=== PATIENT | female | born 1995 | race Caucasian/White ===

== ENCOUNTER 2017-01-18 14:40 | Emergency (ER) | payer OTHER ==
[2017-01-18 15:27] LABS: BILIRUBIN NEGATIVE (NEGATIVE); BLOOD 2+ Ery/uL (NEGATIVE); CLARITY CLEAR (CLEAR); COLOR YELLOW (YELLOW); GLUCOSE (U) NORMAL (NORMAL); KETONE (U) NEGATIVE (NEGATIVE); LEUKOCYTES TRACE Leu/uL (NEGATIVE); NITRITE NEGATIVE (NEGATIVE); PROTEIN TRACE (LOW) mg/dL (NEGATIVE); UROBILINOGEN 0.2 mg/dL (0.2-1.0); pH 7.5 (5.0-9.0)
[2017-01-18 15:39] LABS: BACTERIA 1+
== END 2017-01-18 16:12 | disposition home or self-care (01) ==
LOC: FER 14:40
PROVIDERS: Internal Medicine
DX: N30.01 Acute cystitis with hematuria (principal); F17.210 Nicotine dependence, cigarettes, uncomplicated
CPT/HCPCS: 81001; 87076; 87088; 87186

== ENCOUNTER 2021-08-04 13:21 | Emergency (ER) | payer OTHER | END 2021-08-04 15:06 | disposition home or self-care (01) | LOC: FER 13:21 | DX: S83.422A Sprain of lateral collateral ligament of left knee, initial encounter (principal); X50.1XXA Overexertion from prolonged static or awkward postures, initial encounter; Y92.009 Unspecified place in unspecified non-institutional (private) residence as the place of occurrence of the external cause | CPT/HCPCS: 73564 ==

== ENCOUNTER 2022-04-02 11:47 | Emergency (ER) | payer OTHER ==
[2022-04-02 13:12] LABS: CORONAVIRUS 2019 SARS-COV-2 NEGATIVE (NEGATIVE); INFLUENZA A NAA NEGATIVE (NEGATIVE)
[2022-04-02] MEDS ORDERED: MIRALAX17 GM PO (15:12)
[2022-04-02] MEDS ORDERED: AZELASTINE205.5 MCG/ (15:12)
[2022-04-02] MEDS ORDERED: COLACE100 MG PO (15:12)
== END 2022-04-02 15:38 | disposition home or self-care (01) ==
LOC: FER 11:47
PROVIDERS: Emergency Medicine
DX: R05.9 Cough, unspecified (principal); J02.9 Acute pharyngitis, unspecified; K59.00 Constipation, unspecified; F17.210 Nicotine dependence, cigarettes, uncomplicated; Z20.822 Contact with and (suspected) exposure to COVID-19
CPT/HCPCS: 71046; 87880; U0002